=== PATIENT | female | born 1970 | race Caucasian/White ===

== ENCOUNTER 2017-02-08 11:57 | Day surgery (SDC) | payer OTHER ==
--- NOTE | ~2017-02-08 | EGD ---
EGD REPORT [facility] [address] [address] NAME: SHANTEL WEBB : [birth year] STATUS : REG [facility]#: [id number] AGE: 46 ADM/REG DATE : 02/08/17 MR#: [id number] REPORT SERV DATE: 02/08/17 DICTATED BY: RONNIE ANDRADE DATE: 02/08/17 REPORT STATUS : Draft [facility] DATE: 02/08/17 Endoscopy Center Patient Name: Shantel Webb Date of : 1970 Attending MD: RONNIE ANDRADE MD Procedure Date No Time: 02/08/2017 Procedure: Upper GI endoscopy Indications: Abdominal pain in the right upper quadrant, Heartburn, Nausea Referring MD: ARYA RENEE Medicines: Propofol per Anesthesia Complications: No immediate complications. Procedure: Pre-Anesthesia Assessment: - ASA Grade Assessment: III - A patient with severe systemic disease. After obtaining informed consent, the endoscope was passed under direct vision. Throughout the procedure, the patient's blood pressure, pulse, and oxygen saturations were monitored continuously. The GIF [id number] was introduced through the mouth, and advanced to the second part of duodenum. The upper GI endoscopy was accomplished without difficulty. The patient tolerated the procedure well. Findings: The Z-line was irregular and was found at the gastroesophageal junction. Biopsies were taken with a cold forceps for histology. Patchy moderately erythematous mucosa without bleeding was found in the gastric antrum. Biopsies were taken with a cold forceps for histology. The cardia and gastric fundus were normal on retroflexion. The duodenal bulb and 2nd part of the duodenum were normal. Biopsies were taken with a cold forceps for histology. Impression: - Z-line irregular, at the gastroesophageal junction. Biopsied. - Erythematous mucosa in the antrum. Biopsied. - Normal duodenal bulb and 2nd part of the duodenum. Biopsied. Recommendation: - Follow an antireflux regimen. - Await pathology results. Procedure Code(s): --- Professional --- 57449, Esophagogastroduodenoscopy, flexible, transoral; with biopsy, single or multiple EGD REPORT [facility] [address] [place], [place] [address]. [address] NAME: SHANTEL WEBB : [birth year] STATUS : REG [facility] PAT#: [id number] AGE: 46 ADM/REG DATE : 02/08/17 MR#: [id number] REPORT SERV DATE: 02/08/17 DICTATED BY: RONNIE ANDRADE DATE: 02/08/17 REPORT STATUS : Draft TRANSCRIBED BY: [employer] DATE: 02/08/17 Diagnosis Code(s): --- Professional --- K22.8, Other specified diseases of esophagus K31.9, Disease of stomach and duodenum, unspecified R10.11, Right upper quadrant pain R12, Heartburn R11.0, Nausea CPT copyright 2013 [employer]. All rights reserved. The codes documented in this report are preliminary and upon hair boiler review may be revised to meet current compliance requirements. RONNIE ANDRADE MD 02/08/2017 1:36 PM This report has been signed electronically. Number of Addenda: 0 Note Initiated On: 02/08/2017 1:13 PM Scope Withdrawal Time 0 hours 0 minutes 0 seconds [address] [place] [address]
--- NOTE | ~2017-02-08 | EGD ---
EGD REPORT [facility] [address] [place] [place] [address] NAME: SHANTEL WEBB : [birth year] STATUS : REG [facility]#: [id number] AGE: 46 ADM/REG DATE : 02/08/17 MR#: [id number] REPORT SERV DATE: 02/08/17 DICTATED BY: RONNIE ANDRADE DATE: 02/08/17 REPORT STATUS : Draft TRANSCRIBED BY: [employer] DATE: 02/08/17 Endoscopy Center Patient Name: Shantel Webb Date of : 1970 Attending MD: RONNIE ANDRADE MD Procedure Date No Time: 02/08/2017 Procedure: Colonoscopy Indications: Abdominal pain in the right upper quadrant, Change in bowel habits, Constipation, Diarrhea Referring MD: ARYA RENEE Medicines: Monitored Anesthesia Care Complications: No immediate complications. Procedure: Pre-Anesthesia Assessment: - ASA Grade Assessment: III - A patient with severe systemic disease. After I obtained informed consent, the scope was passed under direct vision. Throughout the procedure, the patient's blood pressure, pulse, and oxygen saturations were monitored continuously. The CF [id number] was introduced through the anus and advanced to the terminal ileum, with identification of the appendiceal orifice and IC valve. The colonoscopy was performed without difficulty. The patient tolerated the procedure well. The quality of the bowel preparation was good. Findings: The digital rectal exam was normal. Pertinent negatives include no palpable rectal lesions. The ascending colon appeared normal. Biopsies were taken with a cold forceps for evaluation of microscopic colitis. The sigmoid colon appeared normal. Biopsies were taken with a cold forceps for evaluation of microscopic colitis. A sessile polyp was found in the rectum. The polyp was 3 mm in size. The polyp was removed with a cold biopsy forceps. Resection and retrieval were complete. Hemorrhoids were found during retroflexion and were mild. The terminal ileum appeared normal. Impression: - The ascending colon is normal. Biopsied. - The sigmoid colon is normal. Biopsied. - One 3 mm polyp in the rectum. Resected and retrieved. - Hemorrhoids. Recommendation: - Patient has a contact number available for emergencies. The signs and symptoms of potential delayed EGD REPORT [address] [address] NAME: SHANTEL WEBB : [birth year] STATUS : REG [facility] PAT#: [id number] AGE: 46 ADM/REG DATE : 02/08/17 MR#: [id number] REPORT SERV DATE: 02/08/17 DICTATED BY: RONNIE ANDRADE DATE: 02/08/17 REPORT STATUS : Draft TRANSCRIBED BY: [employer] DATE: 02/08/17 complications were discussed with the patient. Return to normal activities tomorrow. Written discharge instructions were provided to the patient. - Regular diet. - Continue present medications. - Await pathology results. - Repeat colonoscopy for surveillance based on pathology results. - Return to GI clinic in 1 month. Procedure Code(s): --- Professional --- 33585, Colonoscopy, flexible, proximal to splenic flexure; with biopsy, single or multiple Diagnosis Code(s): --- Professional --- K64.9, Unspecified hemorrhoids K62.1, Rectal polyp R10.11, Right upper quadrant pain R19.4, Change in bowel habit K59.00, Constipation, unspecified R19.7, Diarrhea, unspecified CPT copyright 2013 [employer]. All rights reserved. The codes documented in this report are preliminary and upon excel specialist review may be revised to meet current compliance requirements. RONNIE ANDRADE MD 02/08/2017 1:49 PM This report has been signed electronically. Number of Addenda: 0 Note Initiated On: 02/08/2017 1:08 PM Scope Withdrawal Time 0 hours 7 minutes 7 seconds [address] [address]
[~2017-02-08 11:57] MED LIST: ALLEGRA180 PO; ASMANEX200 INH; BENEFIBER PO; CRANBERRY300 MG PO; FISH-EPA1000 MG PO; FLONASE NAS; HYDROCHLOROT25 MG PO; LOPID6 PO; ONGLYZA5 MG PO; PRILOSEC40 MG PO; PRIN20 PO; SINGULAIR1 PO; SYNTHROID175 MCG PO; TOPAMAX100 PO; VITE1000 PO; [UNRECOGNIZED DRUG - CODE] PO; [UNRECOGNIZED DRUG - OTHER] PO
== END 2017-02-08 23:59 | disposition home or self-care (01) ==
LOC: DMU 11:57
PROVIDERS: Internal Medicine Gastroenterology
PROC: 0DBN8ZX Excision of Sigmoid Colon, Via Natural or Artificial Opening Endoscopic, Diagnostic (ICD-10-PCS; 2017-02-08)
PROC: 0DB48ZX Excision of Esophagogastric Junction, Via Natural or Artificial Opening Endoscopic, Diagnostic (ICD-10-PCS; 2017-02-08)
PROC: 0DB98ZX Excision of Duodenum, Via Natural or Artificial Opening Endoscopic, Diagnostic (ICD-10-PCS; 2017-02-08)
PROC: 0DB78ZX Excision of Stomach, Pylorus, Via Natural or Artificial Opening Endoscopic, Diagnostic (ICD-10-PCS; 2017-02-08)
PROC: 0DBK8ZX Excision of Ascending Colon, Via Natural or Artificial Opening Endoscopic, Diagnostic (ICD-10-PCS; principal; 2017-02-08 13:30)
PROC: 0DBP8ZZ Excision of Rectum, Via Natural or Artificial Opening Endoscopic (ICD-10-PCS; 2017-02-08 13:30)
DX: K62.1 Rectal polyp (principal); K64.9 Unspecified hemorrhoids; K29.50 Unspecified chronic gastritis without bleeding; K22.8 Other specified diseases of esophagus; I10 Essential (primary) hypertension; E11.9 Type 2 diabetes mellitus without complications; E03.9 Hypothyroidism, unspecified; J45.909 Unspecified asthma, uncomplicated; G47.33 Obstructive sleep apnea (adult) (pediatric); Z99.89 Dependence on other enabling machines and devices; Z88.1 Allergy status to other antibiotic agents; Z88.8 Allergy status to other drugs, medicaments and biological substances; Z79.84 Long term (current) use of oral hypoglycemic drugs; Z79.51 Long term (current) use of inhaled steroids; Z79.899 Other long term (current) drug therapy
CPT/HCPCS: 82962; 84703; 88305